=== PATIENT | male | born 1975 | race Caucasian/White ===

== ENCOUNTER 2018-03-07 12:13 | Inpatient (IN) | payer MEDICARE, MEDICAID ==
[~2018-03-07] VITALS: Ht 188 cm; Wt 117.9 kg
[2018-03-07] VITALS (9 sets, daily range): BP systolic 119–183; BP diastolic 71–93
[~2018-03-07 12:13] MED LIST: NOHOMEMEDICATIONS; NORCO 7.5-3251 EACH PO
[2018-03-07] MEDS ORDERED: COREG25 MG PO (12:31)
[2018-03-07] MEDS ORDERED: LASIX 40 MG TAB40 M2 PO (12:31)
[2018-03-07] MEDS ORDERED: NEURONTIN 300300 M1 PO (12:32)
[2018-03-07] MEDS ORDERED: NEURONTIN600 MG PO (12:32)
[2018-03-07] MEDS ORDERED: COREG6.25 MG PO (12:32)
[2018-03-07] MEDS ORDERED: DOXYCYCLINE 10100 MG PO (12:33)
[2018-03-07 12:53] LABS: HEMOGLOBIN 8.5 gm/dL (14.0-18.0); NUCLEATED RBCS 0 /100WBC
[2018-03-07 12:57] LABS: HEMATOCRIT 26.7 % (42.0-52.0); MCH 28.3 pg (26.0-34.0); MCHC 31.7 g/dL (28.0-37.0); MCV 89.2 fL (80.0-100.0); MPV 7.9 fl. (7.2-11.1); PLATELET COUNT* 343 thou/uL (150-400); RBC 2.99 mil/uL (4.50-6.00); RDW-CV 21.5 % (10.5-14.5); WBC 9.9 thou/uL (4.0-11.0)
[2018-03-07 13:07] LABS: ANION GAP 17 mmol/L (7-16); BUN 138 mg/dL (7-18); CALCIUM 9.6 mg/dL (8.5-10.1); CHLORIDE 92 mmol/L (98-107); CO2 21 mmol/L (21-32); CREATININE 9.4 mg/dL (0.6-1.3); GLUCOSE 154 mg/dL (70-99); SODIUM 130 mmol/L (136-145)
[2018-03-07 13:14] LABS: ALBUMIN 2.7 g/dL (3.4-5.0); ALKALINE PHOSPHATASE 94 U/L (46-116); NT-PRO BRAIN NAT PEPTIDE 22042 pg/mL (<300); POTASSIUM 9.2 mmol/L (3.5-5.1); SGOT 30 U/L (15-37); SGPT 24 U/L (30-65); TOTAL BILIRUBIN 0.7 mg/dL (<0.1-1.0); TOTAL PROTEIN 9.2 g/dL (6.4-8.2); TROPONIN-I LEVEL <0.06 ng/mL (<0.06)
[2018-03-07 13:45] LABS: ABSOLUTE LYMPHOCYTES 1.1 thou/uL (0.8-5.3); ABSOLUTE MONOCYTES 0.6 thou/uL (0.0-1.2); ABSOLUTE NEUTROPHILS 8.2 thou/uL (1.6-8.1); ANISOCYTOSIS 2+; PLATELET ESTIMATE ADEQUATE
--- NOTE | 2018-03-07 14:12 | NUR ---
PT BACK FROM [place], UNABLE TO PERFORM VQ SCAN PT CANNOT LAY FLAT
--- NOTE | 2018-03-07 15:14 | EKG ---
[place] [address] ELECTROCARDIOGRAM REPORT Name: ANH BURNHAM Room: [place] [address] ADM IN .R.#: [id number] Admission: 03/07/18 Attend Phys: Valery Valdez Discharge: Date of : 77 Report #: [id number] THIS REPORT FOR: //name// [facility] ED Test Date: 2018-03-07 Test Time: 12:49:11 Pat Name: ANH BURNHAM Department: Room: Gender: [employer] Cook: MOMO Rodriguez : 1975 Requested By: Jamil Candelario Order Number: [id number] MD: Rex Melton Measurements Intervals [place] Rate: 95 P: 250 NV: 193 QRS: 15 QRSD: 176 T: 27 QT: 399 QTc: 502 Interpretive Statements Sinus rhythm LBBB Baseline wander in lead(s) V2 No previous ECG available for comparison Electronically Signed On 03-07-2018 15:13:46 CDT by Rex Melton [email or web address] <ELECTRONICALLY SIGNED> By: Rex Melton MD, [facility] 03/07/18 1513 1249 1249 Rex Melton MD, [facility] /EPI
--- NOTE | 2018-03-07 15:35 | NUR ---
PT ARRIVED VIA CART FROM ER. REPORT RECIEVED FROM FAUZIA SHAIKH. PT A&O X4 FLAT AND GRUFF. PT REFUSES TO SEND ANY BELONGINGS WITH SECURITY 3 CAMO BAGS WITH PERSONAL BELONGINGS ALL LOGGED IN ADMISSION. PT REFUSES TO REMOVE SWEATPANTS. WEEPING BILATERAL LEG WOUNDS, PT REMOVED PERSONAL BANDAIDS AND REFUSED TO ALLOW ME TO CLEAN THEM UP. REFUSED TO SIGN STATING HE CANT EARTH BURNER THE PEN BUT WAS GIVING VERBAL CONSENT. ORIENTATED TO ROOM AND NURSE CALL LIGHT SYSTEM. VITALS STABLE. DIALYSIS SETTING UP DURING ADMISSION PROCESS. REVIEWED HOME MEDS AND UPDATED MED LIST. 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 PT DUSKY IN COLOR AND STATES HE DOESNT HAVE MUCH APPETITIE. FROM HOME WITH SELF CARE.
[2018-03-07] MEDS ORDERED: METOLAZONE 5 MG5 MG PO (16:10)
[2018-03-07] MEDS ORDERED: ROPINIROLE HCL2 MG PO (16:11)
[2018-03-07] MEDS ORDERED: FLEXERIL PO (16:11)
[2018-03-07] MEDS ORDERED: MORPHINE SULFAT15 M3 PO (16:12)
[2018-03-07] MEDS ORDERED: RANITIDINE 150150 M1 PO (16:13)
[2018-03-07] MEDS ORDERED: LOMOTIL TABLET1 EACH PO (16:13)
[2018-03-07] MEDS ORDERED: RENVELA-SEVELAMER PO (16:14)
--- NOTE | 2018-03-07 16:20 | NUR ---
PT O2 SAT AT 90% REFUSES TO WEAR AND IS AT BEDSIDE FOR PATIENT.
--- NOTE | 2018-03-07 16:55 | NUR ---
PATIENT REFUSING ADMISSION WOUND PHOTOS.
--- NOTE | 2018-03-07 18:07 | NUR ---
NO CHANGES SINCE ADMISSION. PATIENT STILL RUNNING DIALYSIS AT THIS TIME.
--- NOTE | 2018-03-07 18:19 | NUR ---
PATIENT REFUSED SMOKING CESSATION EDUCATION
--- NOTE | 2018-03-07 22:06 | NUR ---
RECIEVED REPORT AND ASSUMED CARE OF PT AT 2030. PT COMPLETED 4 HOUR DIALYSIS RUN, 3 LITERS TAKEN OFF. PT REFUSED PO PEPSIS, DOXYCYCLINE AND SUSTAINED RELEASE MORPHINE. PT ANSWERS QUESTIONS, COOPERATIVE WITH FLAT AFFECT. PT REFUSES TO HAVE WOUNDS ON LOWER EXTREMITIES PHOTOGRAPHED. PT REFUSES ACCU CHECK. RECIED VERBAL ORDER FROM DR STERLING, OK TO TRANSFER TO TELEMETRY FLOOR. DR MILES ALSO GAVE OK TO TRANSFER TO TELEMETRY. REPORT GIVEN TO WENDY ADEN RN.
--- NOTE | 2018-03-07 22:17 | NUR ---
PT IN WHEEL CHAIR AT THIS TIME. PT BEING TRANSFERED TO ROOM 206.
--- NOTE | 2018-03-07 22:30 | NUR ---
RECEIVED REPORT AND TRANSFER TO ROOM WITH BELONGINGS. PT HAS FLAT AFFECT BUT COOPERATIVE. ALLOWED TO TAKE VITAL SIGNS AND ASSESS. C/O BACK ITCHING, STATES FROM PREVIOUS MORPHINE. NO REDNESS OR RASH NOTED, WASHED PT'S BACK. PT SAT UPON SIDE OF BED WASHING OFF HIS OWN LEGS. WAS NOT ALLOWED TO HELP BECAUSE HE KNOWS WHERE TO WASH AND WHICH SCABS WILL COME OFF. TELEMETRY APPLIED SHOWING SR. WILL CONT TO MONITOR AND ASSIST NEEDED.
--- NOTE | 2018-03-08 01:30 | NUR ---
PT CARDIAC RHYTHM CHANGED, SHOWING A-FIB WITH RATE INTO 150'S. PT LETHARGIC, WANTS TO BE LEFT ALONE TO SLEEP AND NOT BOTHERED. DR MILES NOTIFIED AND ORDERS RECEIVED FOR CARDIZEM GTT. BOLUS GIVEN AND GTT STARTED. PT REMAINS ASLEEP.
--- NOTE | 2018-03-08 06:57 | NUR ---
SLEPT ALL NIGHT. TELEMETRY CONT TO SHOW A-FIB WITH RATE INTO 130'S WITH CARDIZEM INFUSING AT 10 CC/HR. PT UPSET STATING HE DOESN'T NEED THAT STUFF THAT HIS HR IS ALWAYS LIKE THAT. CONT TO BE NON-COMPLIANT WITH ALL CARE. HS GOALS ACHIEVED OF REST AND SAFETY. HOURLY ROUNDING OBSERVED.
--- NOTE | 2018-03-08 07:30 | NUR ---
ASSUMED CARE OF PT ASSESSED AND DOCUMENTED. PT IS ON CARDIAC MONITER TRACING AFIB HR 117. VSS WNL. PT IS AFEBRILE. PT HAS ULCERS NOTED ON BLLE'S. PT + FOR BRUIT AND THRILL. PT CONT ON CARDIZEM GTT. PT IS ON ROOM AIR. WM.
[2018-03-08 08:00] VITALS: BP 116/70
[2018-03-08 10:04] LABS: CALCIUM 8.9 mg/dL (8.5-10.1)
[2018-03-08 10:08] LABS: POTASSIUM 4.9 mmol/L (3.5-5.1)
[2018-03-08 10:09] LABS: CREATININE 5.9 mg/dL (0.6-1.3)
--- NOTE | 2018-03-08 10:20 | EKG ---
[place] [address] ELECTROCARDIOGRAM REPORT Name: ANH BURNHAM Room: [address] ADM IN M.R.#: [id number] Admission: 03/07/18 Attend Phys: Valery Valdez Discharge: Date of : 77 Report #: [id number] THIS REPORT FOR: //name// [facility] Test Date: 2018-03-08 Test Time: 01:03:04 Pat Name: ANH BURNHAM Department: Room: [address] Gender: M Assistant Customer Service Manager: MANSI : 1975 Requested By: Celeste Alarcon Order Number: [id number] MD: Rex Melton Measurements Intervals [place] Rate: 144 P: NV: QRS: 9 QRSD: 101 T: 142 QT: 294 QTc: 455 Interpretive Statements Atrial fibrillation Borderline repolarization abnormality Baseline wander in lead(s) I,II,aVR,V3 Compared to ECG 03/07/2018 12:49:11 Sinus rhythm no longer present Electronically Signed On 03-08-2018 10:19:59 CDT by Rex Melton [email or web address] <ELECTRONICALLY SIGNED> By: Rex Melton MD, [facility] 03/08/18 1019 0103 0103 Rex Melton MD, [facility] /EPI
[2018-03-08 12:20] VITALS: BP 112/78
--- NOTE | 2018-03-08 13:34 | NUR ---
Nutrition: Consult received for "poor intake." Pt is a renal pt on HD. Multiple wounds on Lt leg, bleeding. Wt: 260#. Labs: BUN 68, creat 5.9, GFR 11, BG 218, alb 2.7, prealb 10.8, BNP 70018. Pt stated he doesn't have a great appetite anymore, but he feels like he eats enough. He drinks Nepro supplement at dialysis clinic, and agreed to one a day while here. Pt has h/o noncompliance. Poor nutrition-related quality of life R/T long-term conditions AEB ESRD on HD, noncompliance, wounds. Mild to Moderate risk. RD will order Nepro ([employer]) for lunches.
[2018-03-08] MEDS ORDERED: REGLAN 10 MG TA10 MG PO (13:43)
[2018-03-08 13:45] VITALS: BP 112/78
--- NOTE | 2018-03-08 14:03 | NUR ---
Pt discharging to home, Pt current with [facility], faxed resumption orders.
--- NOTE | 2018-03-08 14:39 | NUR ---
PT D/C'D TO HOME. D/C'D IV AND CARDIAC MONITER. EDUCATION GIVEN RE DR ORDERS, FOLLOW-UPS, AND MEDICATIONS. SCRIPT GIVEN. JERALD WITH PHARMACY BROUGHT UP PT MEDS. ALL BELONGINGS PACKED UP AND LEFT WITH PT ACCOMPANIED BY STAFF. PT REFUSED PICTURES.
--- NOTE | 2018-03-10 10:32 | CON ---
[facility] [address] [place] [address] CONSULTATION Name: ANH BURNHAM Room: [address] IN M.R.#: [id number] Admission: 03/07/18 Attend Phys: Valery Valdez Discharge: 03/08/18 Date of : 77 Report #: [id number] THIS REPORT FOR: //name// CC: ADAN physician/PCP Celeste Alarcon DATE OF SERVICE: 03/08/2018 REQUESTING PHYSICIAN: Celeste Alarcon M.D. REASON FOR CONSULTATION: Assist in providing dialysis. HISTORY OF PRESENT ILLNESS: The patient is a 43-year-old white male with medical history significant for end-stage renal disease and extreme noncompliance with his dietary restrictions and fluid restrictions. He presents to the hospital with not feeling well, having lower extremity edema, weakness, was found to have potassium of 9.3 and was dialyzed urgently yesterday. He is on dialysis today, but now he is requesting to take him off dialysis because of pain in his fistula. Despite of my conversation with him, he still insists on taking him off dialysis. Again, the patient is extremely noncompliant, and he is not going to do well long-term and my expectation is that he will within a year. PAST MEDICAL HISTORY: 1. End-stage renal disease. 2. Medical noncompliance. 3. Hypertension. 4. Obesity. 5. Tobaccoism. SOCIAL HISTORY: Positive for tobaccoism and noncompliance with his dietary prescription and fluid prescription. PHYSICAL EXAMINATION: He is examined on dialysis. VITAL SIGNS: His blood pressure 116/70, heart rate 66, afebrile. HEENT: Pupils are round. NECK: Fatty. LUNGS: Decreased air movement. CARDIOVASCULAR: Regular rate. ABDOMEN: Obese, soft. EXTREMITIES: Lower extremities with chronic edema and ulcerations on his legs. LABORATORY DATA: On admission his potassium was 9.2, this morning it is 4.9. His BUN on admission was 138 and now it is 68. Creatinine was 9.4. His white count is 8.5. [place] [address] CONSULTATION Name: ANH BURNHAM Room: [address] IN [facility].#: [id number] Admission: 03/07/18 Attend Phys: Valery Valdez Discharge: 03/08/18 Date of : 77 Report #: [id number] ASSESSMENT AND PLAN: This is a 43-year-old white male with end-stage renal disease and extreme medical noncompliance with his dietary restrictions and dialysis prescription and fluid restriction, on dialysis now, requesting to take him off because of the pain in the fistula. I offered him to give him some pain medications, but he refused that. Unfortunately, I cannot help this patient who does not want to help himself. Thank you very much. <ELECTRONICALLY SIGNED> By: Javier Buckley MD 03/10/18 1032 1048 [id number] Buckley MD /nt
== END 2018-03-08 14:18 | disposition home health service (06) | DRG 291 ==
LOC: M.ERS 12:13 → M.2W 14:22 → M.TBA-ER 14:22 → M.ICU 15:44 → M.2W 22:28
PROVIDERS: Emergency Medicine Emergency Medical Services; Internal Medicine Nephrology; ADMIT Internal Medicine
PROC: 5A1D70Z Performance of Urinary Filtration, Intermittent, Less than 6 Hours Per Day (ICD-10-PCS; principal; 2018-03-08)
DX: I13.2 Hypertensive heart and chronic kidney disease with heart failure and with stage 5 chronic kidney disease, or end stage renal disease (principal); I50.21 Acute systolic (congestive) heart failure; J96.01 Acute respiratory failure with hypoxia; N18.6 End stage renal disease; E87.5 Hyperkalemia; I87.2 Venous insufficiency (chronic) (peripheral); E66.9 Obesity, unspecified; F17.210 Nicotine dependence, cigarettes, uncomplicated; Z88.8 Allergy status to other drugs, medicaments and biological substances; Z82.49 Family history of ischemic heart disease and other diseases of the circulatory system; Z91.19 Patient's noncompliance with other medical treatment and regimen; Z68.33 Body mass index [BMI] 33.0-33.9, adult; Z79.899 Other long term (current) drug therapy

== ENCOUNTER → 2018-04-04 | Outpatient (CLI) | payer MEDICARE, MEDICAID ==
[~2018-04-04] MED LIST changes: +COREG25 MG PO; +COREG6.25 MG PO; +DOXYCYCLINE 10100 MG PO; +FLEXERIL PO; +LASIX 40 MG TAB40 M2 PO; +LOMOTIL TABLET1 EACH PO; +METOLAZONE 5 MG5 MG PO; +MORPHINE SULFAT15 M3 PO; +NEURONTIN 300300 M1 PO; +NEURONTIN600 MG PO; +RANITIDINE 150150 M1 PO; +REGLAN 10 MG TA10 MG PO; +RENVELA-SEVELAMER PO; +ROPINIROLE HCL2 MG PO
== END ==
LOC: M.WC 09:00
DX: E11.622 Type 2 diabetes mellitus with other skin ulcer (principal); I87.313 Chronic venous hypertension (idiopathic) with ulcer of bilateral lower extremity; L97.811 Non-pressure chronic ulcer of other part of right lower leg limited to breakdown of skin; L97.821 Non-pressure chronic ulcer of other part of left lower leg limited to breakdown of skin; E11.43 Type 2 diabetes mellitus with diabetic autonomic (poly)neuropathy; K31.84 Gastroparesis; E11.22 Type 2 diabetes mellitus with diabetic chronic kidney disease; I12.0 Hypertensive chronic kidney disease with stage 5 chronic kidney disease or end stage renal disease; N18.5 Chronic kidney disease, stage 5; E11.51 Type 2 diabetes mellitus with diabetic peripheral angiopathy without gangrene; K21.9 Gastro-esophageal reflux disease without esophagitis; M10.9 Gout, unspecified; G47.30 Sleep apnea, unspecified; F17.200 Nicotine dependence, unspecified, uncomplicated

== ENCOUNTER 2018-04-11 08:30 | Inpatient (IN) | payer MEDICARE, MEDICAID ==
[~2018-04-11] VITALS: Ht 188 cm; Wt 118.8 kg
[2018-04-11 08:32] VITALS: BP 168/93
[2018-04-11 09:00] LABS: MPV 8.3 fl. (7.2-11.1); NUCLEATED RBCS 0 /100WBC
[2018-04-11 09:02] LABS: HEMATOCRIT 27.2 % (42.0-52.0); HEMOGLOBIN 8.3 gm/dL (14.0-18.0); MCH 26.7 pg (26.0-34.0); MCHC 30.6 g/dL (28.0-37.0); MCV 87.1 fL (80.0-100.0); PLATELET COUNT* 372 thou/uL (150-400); RBC 3.12 mil/uL (4.50-6.00); RDW-CV 19.1 % (10.5-14.5); WBC 12.1 thou/uL (4.0-11.0)
[2018-04-11 09:04] LABS: ANION GAP 16 mmol/L (7-16); BUN 95 mg/dL (7-18); CALCIUM 9.5 mg/dL (8.5-10.1); CHLORIDE 93 mmol/L (98-107); CO2 22 mmol/L (21-32); CREATININE 7.5 mg/dL (0.6-1.3); GLUCOSE 72 mg/dL (70-99); SODIUM 131 mmol/L (136-145)
[2018-04-11 09:11] LABS: POTASSIUM 6.9 mmol/L (3.5-5.1)
--- NOTE | 2018-04-11 09:13 | NUR ---
PATIENT CONTINUES TO REFUSE I.V. ACCESS
[2018-04-11 09:15] LABS: ALBUMIN 2.2 g/dL (3.4-5.0); ALKALINE PHOSPHATASE 115 U/L (46-116); SGOT 37 U/L (15-37); SGPT 34 U/L (30-65); TOTAL BILIRUBIN 1.2 mg/dL (<0.1-1.0); TOTAL PROTEIN 9.5 g/dL (6.4-8.2); TROPONIN-I LEVEL <0.06 ng/mL (<0.06)
[2018-04-11 09:20] LABS: NT-PRO BRAIN NAT PEPTIDE > 35000 pg/mL (<300)
--- NOTE | 2018-04-11 09:50 | NUR ---
WENT IN TO START IV ON PATIENT AND HE REFUSED.
[2018-04-11 09:51] LABS: ABSOLUTE BASOPHILS 0.1 thou/uL (0.0-0.2); ABSOLUTE LYMPHOCYTES 0.7 thou/uL (0.8-5.3); ABSOLUTE MONOCYTES 0.6 thou/uL (0.0-1.2); ABSOLUTE NEUTROPHILS 10.6 thou/uL (1.6-8.1); PLATELET ESTIMATE ADEQUATE
[2018-04-11 10:45] VITALS: BP 175/88
[2018-04-11 10:56] VITALS: BP 156/77
--- NOTE | 2018-04-11 11:48 | NUR ---
RECEIVED REPORT FROM FRANCESCA IN ED AND ASSUMED CARE OF PT @ 8896.PT IS A/O X4,VSS,TRACING SR ON THE MONITOR.LUNG SOUNDS ARE CLEAR DIMINSHED.LAST BM WAS TODAY.NO IV ACCESS AND REFUSING TO HAVE ONE STARTED AT TIME OF ASSESSMENT.PT IS CALM WITH C/O PAIN IN LOWER BACK AND LEGS.PT STATES HE IS TOO WEAK TO GET UP EVEN WITH ASSISTANCE SO WAS SLID FROM BED TO BED.PT LEFT RESTING IN BED WITH CALL LIGHT WITHIN REACH.PT TAKEN UP TO DIALYSIS.WILL CONTINUE TO MONITOR.
--- NOTE | 2018-04-11 12:42 | NUR ---
PT IS REQUESTING TO SIT ON BEDPAN FOR EXTENDED AMOUNTS OF TIME DUE TO LOOSE STOOLS.PT WAS EDUCATED ON THE RISKS AND STILL INSISTS.STOOL SAMPLE COLLECTED.
--- NOTE | 2018-04-11 15:26 | EKG ---
[place] [address] ELECTROCARDIOGRAM REPORT Name: ANH BURNHAM Room: [place] [address] ADM IN R.#: [id number] Admission: 04/11/18 Attend Phys: Nayeli Dorado MD Discharge: Date of : 77 Report #: [id number] THIS REPORT FOR: //name// [facility] Test Date: 2018-04-11 Test Time: 09:01:17 Pat Name: ANH BURNHAM Department: Room: Gender: Desk Monitor: Manolo ABEL : 1975 Requested By: Jamil Candelario Order Number: [id number] MD: Rex Melton Measurements Intervals [place] Rate: 99 P: -81 [place]: 175 QRS: -67 QRSD: 135 T: 27 QT: 395 QTc: 507 Interpretive Statements Sinus tachycardia with first degree av block Nonspecific IVCD with LAD Compared to ECG 03/08/2018 01:03:04 Atrial fibrillation no longer present Electronically Signed On 04-11-2018 15:26:12 CDT by Rex Melton [email or web address] <ELECTRONICALLY SIGNED> By: Rex Melton MD, [facility] 04/11/18 1526 0901 0901 Rex Melton MD, [facility] /EPI
--- NOTE | 2018-04-11 18:29 | NUR ---
PT CAME BACK FROM DIALYSIS AND REFUSED IV ACCESS.PICTURES TAKEN OF WOUNDS.LEGS WRAPPED.PT WANTS TO LEAVE AMA.AMA PAPERWORK SIGNED.PERSONAL BELONGINGS PACKED AND TAKEN WITH PT.HEART MONITOR REMOVED AND RETURNED TO NURSING STATION. NOTIFIED.
--- NOTE | 2018-04-12 14:29 | NUR ---
PLEASE NOTE ORDERS RECEIVED ON 04/11 FOR P.T. PT WAS DISCHARGED LATER ON 04/11 BEFORE P.T. EVAL COULD BE COMPLETED.
--- NOTE | 2018-04-21 08:40 | CON ---
[address] [address] CONSULTATION Name: ANH BURNHAM Room: [address] IN M.R.#: [id number] Admission: 04/11/18 Attend Phys: Nayeli Dorado MD Discharge: 04/11/18 Date of : 77 Report #: [id number] THIS REPORT FOR: //name// CC: Prem Dorado DATE OF SERVICE: 04/11/2018 CONSULTING PHYSICIAN: Dr. Candelario. REASON FOR NEPHROLOGY CONSULTATION: End-stage renal disease, hyperkalemia, for maintenance hemodialysis. CHIEF COMPLAINT: Weakness, nausea and vomiting. HISTORY OF PRESENT ILLNESS: This is a 43-year-old male who is very noncompliant with his dialysis, goes to [facility], claims that he goes for dialysis, goes to dialysis every Wednesday, and Wednesday and claims that he did go for dialysis last Wednesday, but he was recently seen at [facility] after he missed his dialysis and his potassium was 9.3. He came in today with generalized weakness, nausea, vomiting and diarrhea. Nephrology has been consulted for dialysis needs. His potassium is 6.9 today. He currently looks comfortable, not short of breath, sitting up in bed. ALLERGIES: BENADRYL. REVIEW OF SYSTEMS: The patient was complaining of feeling weak and having nausea, vomiting and diarrhea and other review of systems were done, they were negative except his lower extremities, there were multiple wounds in his lower extremities. PAST MEDICAL AND SURGICAL HISTORY: Includes hypertension, diabetes and end-stage renal disease, on hemodialysis as well as left arm AV fistula, gastroparesis, chronic pain. HOME MEDICATIONS: Include furosemide, gabapentin, carvedilol, metolazone, ropinirole, cyclobenzaprine, Morphine, diphenoxylate, , Renvela, and metoclopramide. FAMILY HISTORY: Noncontributory to current situation. SOCIAL HISTORY: I am not sure how his living situation is and I am not sure if I can trust the patient in regards to his social history. He does smoke and other history, I do not think I can trust his history. PHYSICAL EXAMINATION: [place] [address] CONSULTATION Name: ANH BURNHAM Room: [address]#: [id number] Admission: 04/11/18 Attend Phys: Nayeli Dorado MD Discharge: 04/11/18 Date of : 77 Report #: [id number] VITAL SIGNS: Blood pressure is 155/84, respiratory rate is 12, pulse rate is 100, temperature 36.8, and pulse ox is 100% on room air. GENERAL: He is awake and alert, seems to be oriented . HEAD, EYES, EARS, NOSE AND THROAT: Mucous membranes are moist. NECK: There is no JVD. CHEST: Diminished breath sounds bilaterally. No crackles or wheezing. CARDIOVASCULAR: S1, S2 normal. No murmurs heard. ABDOMEN: Soft, nondistended, nontender. Bowel sounds are diminished. EXTREMITIES: He has in his bilateral lower extremities what looks like chronic nonpitting edema. Bilateral lower extremities have multiple open sores and the base of the source is erythematous and having some sanguinous drainage. NEUROLOGICAL FUNCTION: Gross neurological function seems to be intact. PSYCHIATRIC: He seems to be depressed. LABORATORY DATA: Hemoglobin initially was 8.3, WBC was 12.1. Sodium is 131, potassium 6.9, BUN is 95 and other labs are reviewed. IMAGING: Chest x-ray was reviewed. ASSESSMENT: 1. End-stage renal disease, on hemodialysis, not sure of his dialysis days, not compliant, goes to [facility]. 2. Hyperkalemia. 3. Anemia of chronic kidney disease. 4. Secondary hyperparathyroidism. 5. Hypertension. PLAN: 1. The patient will be dialyzed today as well as tomorrow for hyperkalemia and tomorrow might be his regular dialysis day. 2. We will give him 10,000 units of Epogen to help with his anemia. 3. Continue his binders to help with the secondary hyperparathyroidism and hyperphosphatemia. 4. Continue blood pressure medications. Thank you for this consultation. I will continue to follow along with you for his dialysis needs. <ELECTRONICALLY SIGNED> By: Dalia Graff MD 04/21/18 0840 1033 [id number] Graff MD /nt
== END 2018-04-11 18:24 | disposition left against medical advice (07) | DRG 640 ==
LOC: M.ERS 08:30 → M.TBA-ER 10:01 → M.2W 10:01
PROVIDERS: Emergency Medicine Emergency Medical Services; ADMIT Internal Medicine
PROC: 5A1D70Z Performance of Urinary Filtration, Intermittent, Less than 6 Hours Per Day (ICD-10-PCS; principal; 2018-04-11)
DX: E87.5 Hyperkalemia (principal); N18.6 End stage renal disease; I12.0 Hypertensive chronic kidney disease with stage 5 chronic kidney disease or end stage renal disease; N25.81 Secondary hyperparathyroidism of renal origin; K31.89 Other diseases of stomach and duodenum; F17.210 Nicotine dependence, cigarettes, uncomplicated; G89.29 Other chronic pain; E11.22 Type 2 diabetes mellitus with diabetic chronic kidney disease; D63.1 Anemia in chronic kidney disease; R19.7 Diarrhea, unspecified; Z99.2 Dependence on renal dialysis; Z88.8 Allergy status to other drugs, medicaments and biological substances; Z82.49 Family history of ischemic heart disease and other diseases of the circulatory system

== ENCOUNTER → 2018-04-25 | Outpatient (CLI) | payer MEDICARE, MEDICAID | LOC: M.WC 01:16 | DX: E11.622 Type 2 diabetes mellitus with other skin ulcer (principal); I87.313 Chronic venous hypertension (idiopathic) with ulcer of bilateral lower extremity; L97.811 Non-pressure chronic ulcer of other part of right lower leg limited to breakdown of skin; L97.821 Non-pressure chronic ulcer of other part of left lower leg limited to breakdown of skin; E11.51 Type 2 diabetes mellitus with diabetic peripheral angiopathy without gangrene; E11.43 Type 2 diabetes mellitus with diabetic autonomic (poly)neuropathy; K31.84 Gastroparesis; E11.22 Type 2 diabetes mellitus with diabetic chronic kidney disease; I12.0 Hypertensive chronic kidney disease with stage 5 chronic kidney disease or end stage renal disease; N18.5 Chronic kidney disease, stage 5; M10.9 Gout, unspecified; K21.9 Gastro-esophageal reflux disease without esophagitis; G47.30 Sleep apnea, unspecified; F17.200 Nicotine dependence, unspecified, uncomplicated ==

== ENCOUNTER → 2018-04-27 | Outpatient (CLI) | payer MEDICARE, MEDICAID | LOC: M.WC 03:02 | DX: E11.622 Type 2 diabetes mellitus with other skin ulcer (principal); I87.313 Chronic venous hypertension (idiopathic) with ulcer of bilateral lower extremity; L97.821 Non-pressure chronic ulcer of other part of left lower leg limited to breakdown of skin; L97.811 Non-pressure chronic ulcer of other part of right lower leg limited to breakdown of skin; E11.22 Type 2 diabetes mellitus with diabetic chronic kidney disease; I12.0 Hypertensive chronic kidney disease with stage 5 chronic kidney disease or end stage renal disease; N18.5 Chronic kidney disease, stage 5; E11.51 Type 2 diabetes mellitus with diabetic peripheral angiopathy without gangrene; E11.43 Type 2 diabetes mellitus with diabetic autonomic (poly)neuropathy; K31.84 Gastroparesis; M10.9 Gout, unspecified; K21.9 Gastro-esophageal reflux disease without esophagitis; G47.30 Sleep apnea, unspecified; F17.200 Nicotine dependence, unspecified, uncomplicated ==

== ENCOUNTER → 2018-05-02 | Outpatient (CLI) | payer MEDICARE, MEDICAID | LOC: M.WC 00:54 | DX: E11.622 Type 2 diabetes mellitus with other skin ulcer (principal); I87.313 Chronic venous hypertension (idiopathic) with ulcer of bilateral lower extremity; L97.821 Non-pressure chronic ulcer of other part of left lower leg limited to breakdown of skin; L97.811 Non-pressure chronic ulcer of other part of right lower leg limited to breakdown of skin; E11.22 Type 2 diabetes mellitus with diabetic chronic kidney disease; I12.9 Hypertensive chronic kidney disease with stage 1 through stage 4 chronic kidney disease, or unspecified chronic kidney disease; N18.2 Chronic kidney disease, stage 2 (mild); E11.43 Type 2 diabetes mellitus with diabetic autonomic (poly)neuropathy; K31.84 Gastroparesis; K21.9 Gastro-esophageal reflux disease without esophagitis; E11.51 Type 2 diabetes mellitus with diabetic peripheral angiopathy without gangrene; G47.30 Sleep apnea, unspecified; F17.200 Nicotine dependence, unspecified, uncomplicated ==

== ENCOUNTER → 2018-05-04 | Outpatient (CLI) | payer MEDICARE, MEDICAID | LOC: M.WC 04:12 | DX: E11.622 Type 2 diabetes mellitus with other skin ulcer (principal); I87.313 Chronic venous hypertension (idiopathic) with ulcer of bilateral lower extremity; L97.821 Non-pressure chronic ulcer of other part of left lower leg limited to breakdown of skin; L97.811 Non-pressure chronic ulcer of other part of right lower leg limited to breakdown of skin; E11.22 Type 2 diabetes mellitus with diabetic chronic kidney disease; I12.0 Hypertensive chronic kidney disease with stage 5 chronic kidney disease or end stage renal disease; N18.5 Chronic kidney disease, stage 5; E11.51 Type 2 diabetes mellitus with diabetic peripheral angiopathy without gangrene; E11.43 Type 2 diabetes mellitus with diabetic autonomic (poly)neuropathy; K31.84 Gastroparesis; K21.9 Gastro-esophageal reflux disease without esophagitis; M10.9 Gout, unspecified; G47.30 Sleep apnea, unspecified; F17.200 Nicotine dependence, unspecified, uncomplicated ==

== ENCOUNTER → 2018-05-09 | Outpatient (CLI) | payer MEDICARE, MEDICAID | LOC: M.WC 01:01 | DX: E11.622 Type 2 diabetes mellitus with other skin ulcer (principal); I87.313 Chronic venous hypertension (idiopathic) with ulcer of bilateral lower extremity; L97.821 Non-pressure chronic ulcer of other part of left lower leg limited to breakdown of skin; L97.811 Non-pressure chronic ulcer of other part of right lower leg limited to breakdown of skin; E11.43 Type 2 diabetes mellitus with diabetic autonomic (poly)neuropathy; K31.84 Gastroparesis; E11.51 Type 2 diabetes mellitus with diabetic peripheral angiopathy without gangrene; M10.9 Gout, unspecified; K21.9 Gastro-esophageal reflux disease without esophagitis; G47.30 Sleep apnea, unspecified; F17.200 Nicotine dependence, unspecified, uncomplicated ==

== ENCOUNTER → 2018-05-11 | Outpatient (CLI) | payer MEDICARE, MEDICAID | LOC: M.WC 03:23 | DX: E11.622 Type 2 diabetes mellitus with other skin ulcer (principal); L97.811 Non-pressure chronic ulcer of other part of right lower leg limited to breakdown of skin; L97.821 Non-pressure chronic ulcer of other part of left lower leg limited to breakdown of skin; I87.313 Chronic venous hypertension (idiopathic) with ulcer of bilateral lower extremity; E11.43 Type 2 diabetes mellitus with diabetic autonomic (poly)neuropathy; E11.51 Type 2 diabetes mellitus with diabetic peripheral angiopathy without gangrene; E11.22 Type 2 diabetes mellitus with diabetic chronic kidney disease; I12.0 Hypertensive chronic kidney disease with stage 5 chronic kidney disease or end stage renal disease; N18.5 Chronic kidney disease, stage 5; G25.81 Restless legs syndrome; G47.30 Sleep apnea, unspecified; K21.9 Gastro-esophageal reflux disease without esophagitis; M10.9 Gout, unspecified; M51.36 Other intervertebral disc degeneration, lumbar region; F17.200 Nicotine dependence, unspecified, uncomplicated ==

== ENCOUNTER → 2018-05-16 | Outpatient (CLI) | payer MEDICARE, MEDICAID | LOC: M.WC 06:16 | DX: E11.622 Type 2 diabetes mellitus with other skin ulcer (principal); I87.313 Chronic venous hypertension (idiopathic) with ulcer of bilateral lower extremity; L97.811 Non-pressure chronic ulcer of other part of right lower leg limited to breakdown of skin; L97.821 Non-pressure chronic ulcer of other part of left lower leg limited to breakdown of skin; E11.43 Type 2 diabetes mellitus with diabetic autonomic (poly)neuropathy; K31.84 Gastroparesis; E11.51 Type 2 diabetes mellitus with diabetic peripheral angiopathy without gangrene; E11.22 Type 2 diabetes mellitus with diabetic chronic kidney disease; I12.9 Hypertensive chronic kidney disease with stage 1 through stage 4 chronic kidney disease, or unspecified chronic kidney disease; N18.5 Chronic kidney disease, stage 5; M10.9 Gout, unspecified; K21.9 Gastro-esophageal reflux disease without esophagitis; G47.30 Sleep apnea, unspecified; F17.200 Nicotine dependence, unspecified, uncomplicated ==

== ENCOUNTER → 2018-05-23 | Outpatient (CLI) | payer MEDICARE, MEDICAID | LOC: M.WC 02:00 | DX: E11.622 Type 2 diabetes mellitus with other skin ulcer (principal); I87.313 Chronic venous hypertension (idiopathic) with ulcer of bilateral lower extremity; L97.811 Non-pressure chronic ulcer of other part of right lower leg limited to breakdown of skin; L97.821 Non-pressure chronic ulcer of other part of left lower leg limited to breakdown of skin; E11.43 Type 2 diabetes mellitus with diabetic autonomic (poly)neuropathy; K31.84 Gastroparesis; E11.22 Type 2 diabetes mellitus with diabetic chronic kidney disease; I12.9 Hypertensive chronic kidney disease with stage 1 through stage 4 chronic kidney disease, or unspecified chronic kidney disease; N18.5 Chronic kidney disease, stage 5; E11.51 Type 2 diabetes mellitus with diabetic peripheral angiopathy without gangrene; K21.9 Gastro-esophageal reflux disease without esophagitis; M10.9 Gout, unspecified; G47.30 Sleep apnea, unspecified; F17.200 Nicotine dependence, unspecified, uncomplicated ==

== ENCOUNTER → 2018-06-01 | Outpatient (CLI) | payer MEDICARE, MEDICAID | LOC: M.WC 04:50 | DX: E11.622 Type 2 diabetes mellitus with other skin ulcer (principal); L97.821 Non-pressure chronic ulcer of other part of left lower leg limited to breakdown of skin; L97.811 Non-pressure chronic ulcer of other part of right lower leg limited to breakdown of skin; I87.313 Chronic venous hypertension (idiopathic) with ulcer of bilateral lower extremity; E11.51 Type 2 diabetes mellitus with diabetic peripheral angiopathy without gangrene; E11.43 Type 2 diabetes mellitus with diabetic autonomic (poly)neuropathy; E11.22 Type 2 diabetes mellitus with diabetic chronic kidney disease; I12.0 Hypertensive chronic kidney disease with stage 5 chronic kidney disease or end stage renal disease; N18.5 Chronic kidney disease, stage 5; H91.90 Unspecified hearing loss, unspecified ear; G25.81 Restless legs syndrome; G47.30 Sleep apnea, unspecified; K21.9 Gastro-esophageal reflux disease without esophagitis; M10.9 Gout, unspecified; F17.200 Nicotine dependence, unspecified, uncomplicated; F41.9 Anxiety disorder, unspecified ==

== ENCOUNTER → 2018-06-08 | Outpatient (CLI) | payer MEDICARE, MEDICAID | LOC: M.WC 03:04 | DX: E11.622 Type 2 diabetes mellitus with other skin ulcer (principal); L97.821 Non-pressure chronic ulcer of other part of left lower leg limited to breakdown of skin; L97.811 Non-pressure chronic ulcer of other part of right lower leg limited to breakdown of skin; I87.313 Chronic venous hypertension (idiopathic) with ulcer of bilateral lower extremity; E11.43 Type 2 diabetes mellitus with diabetic autonomic (poly)neuropathy; E11.51 Type 2 diabetes mellitus with diabetic peripheral angiopathy without gangrene; E11.22 Type 2 diabetes mellitus with diabetic chronic kidney disease; I12.0 Hypertensive chronic kidney disease with stage 5 chronic kidney disease or end stage renal disease; N18.5 Chronic kidney disease, stage 5; K21.9 Gastro-esophageal reflux disease without esophagitis; G47.30 Sleep apnea, unspecified; G25.81 Restless legs syndrome; M51.36 Other intervertebral disc degeneration, lumbar region; M10.9 Gout, unspecified; F41.9 Anxiety disorder, unspecified; F17.200 Nicotine dependence, unspecified, uncomplicated; Z99.2 Dependence on renal dialysis ==

== ENCOUNTER → 2018-06-14 | Outpatient (CLI) | payer MEDICARE, MEDICAID | LOC: M.WC 05:26 | DX: E11.622 Type 2 diabetes mellitus with other skin ulcer (principal); L97.811 Non-pressure chronic ulcer of other part of right lower leg limited to breakdown of skin; L97.821 Non-pressure chronic ulcer of other part of left lower leg limited to breakdown of skin; I87.313 Chronic venous hypertension (idiopathic) with ulcer of bilateral lower extremity; E11.51 Type 2 diabetes mellitus with diabetic peripheral angiopathy without gangrene; E11.43 Type 2 diabetes mellitus with diabetic autonomic (poly)neuropathy; E11.22 Type 2 diabetes mellitus with diabetic chronic kidney disease; I12.0 Hypertensive chronic kidney disease with stage 5 chronic kidney disease or end stage renal disease; N18.5 Chronic kidney disease, stage 5; M10.9 Gout, unspecified; K21.9 Gastro-esophageal reflux disease without esophagitis; G47.30 Sleep apnea, unspecified; G25.81 Restless legs syndrome; F17.200 Nicotine dependence, unspecified, uncomplicated ==

== ENCOUNTER → 2018-06-16 | Outpatient (CLI) | payer MEDICARE, MEDICAID | LOC: M.WC 06-15 10:30 | DX: E11.622 Type 2 diabetes mellitus with other skin ulcer (principal); L97.811 Non-pressure chronic ulcer of other part of right lower leg limited to breakdown of skin; L97.821 Non-pressure chronic ulcer of other part of left lower leg limited to breakdown of skin; I87.313 Chronic venous hypertension (idiopathic) with ulcer of bilateral lower extremity; E11.51 Type 2 diabetes mellitus with diabetic peripheral angiopathy without gangrene; E11.43 Type 2 diabetes mellitus with diabetic autonomic (poly)neuropathy; E11.22 Type 2 diabetes mellitus with diabetic chronic kidney disease; N18.6 End stage renal disease; G47.30 Sleep apnea, unspecified; G25.81 Restless legs syndrome; K21.9 Gastro-esophageal reflux disease without esophagitis; M51.36 Other intervertebral disc degeneration, lumbar region; M10.9 Gout, unspecified; F17.200 Nicotine dependence, unspecified, uncomplicated; F41.9 Anxiety disorder, unspecified ==

== ENCOUNTER → 2018-06-23 | Outpatient (CLI) | payer MEDICARE, MEDICAID | LOC: M.WC 04:50 | DX: E11.622 Type 2 diabetes mellitus with other skin ulcer (principal); L97.811 Non-pressure chronic ulcer of other part of right lower leg limited to breakdown of skin; L97.821 Non-pressure chronic ulcer of other part of left lower leg limited to breakdown of skin; I87.313 Chronic venous hypertension (idiopathic) with ulcer of bilateral lower extremity; E11.51 Type 2 diabetes mellitus with diabetic peripheral angiopathy without gangrene; E11.43 Type 2 diabetes mellitus with diabetic autonomic (poly)neuropathy; E11.22 Type 2 diabetes mellitus with diabetic chronic kidney disease; I12.0 Hypertensive chronic kidney disease with stage 5 chronic kidney disease or end stage renal disease; N18.6 End stage renal disease; G47.30 Sleep apnea, unspecified; G25.81 Restless legs syndrome; K21.9 Gastro-esophageal reflux disease without esophagitis; M10.9 Gout, unspecified; M51.36 Other intervertebral disc degeneration, lumbar region; F41.9 Anxiety disorder, unspecified; F17.200 Nicotine dependence, unspecified, uncomplicated ==

== ENCOUNTER → 2018-07-07 | Outpatient (CLI) | payer MEDICARE, MEDICAID | LOC: M.WC 05:12 | DX: E11.622 Type 2 diabetes mellitus with other skin ulcer (principal); I87.313 Chronic venous hypertension (idiopathic) with ulcer of bilateral lower extremity; L97.811 Non-pressure chronic ulcer of other part of right lower leg limited to breakdown of skin; L97.821 Non-pressure chronic ulcer of other part of left lower leg limited to breakdown of skin; E11.22 Type 2 diabetes mellitus with diabetic chronic kidney disease; N18.6 End stage renal disease; F41.9 Anxiety disorder, unspecified ==

== ENCOUNTER → 2018-07-21 | Outpatient (CLI) | payer MEDICARE, MEDICAID | LOC: M.WC 04:40 | DX: E11.622 Type 2 diabetes mellitus with other skin ulcer (principal); I87.313 Chronic venous hypertension (idiopathic) with ulcer of bilateral lower extremity; L97.821 Non-pressure chronic ulcer of other part of left lower leg limited to breakdown of skin; L97.811 Non-pressure chronic ulcer of other part of right lower leg limited to breakdown of skin; E11.22 Type 2 diabetes mellitus with diabetic chronic kidney disease; I12.0 Hypertensive chronic kidney disease with stage 5 chronic kidney disease or end stage renal disease; N18.6 End stage renal disease; E11.43 Type 2 diabetes mellitus with diabetic autonomic (poly)neuropathy; K31.84 Gastroparesis; E11.51 Type 2 diabetes mellitus with diabetic peripheral angiopathy without gangrene; K21.9 Gastro-esophageal reflux disease without esophagitis; G47.30 Sleep apnea, unspecified; M10.9 Gout, unspecified; F41.9 Anxiety disorder, unspecified; F17.200 Nicotine dependence, unspecified, uncomplicated ==